=== PATIENT | male | born 1950 | race Caucasian/White ===

== ENCOUNTER → 2021-08-08 | Day surgery (SDC) | payer MEDICARE ==
[~2021-08-08] VITALS: Ht 176.5 cm; Wt 113.7 kg
[~2021-08-08] MED LIST: ASPIRIN EC81 MG PO; CARDIZEM CD240 MG PO; CARVEDILOL ER80 MG PO; CELEXA20 MG PO; ELIQUIS5 MG PO; ESOMEPRAZOLE MA40 MG PO; FENOFIBRATE160 MG PO; FLECAINIDE ACET50 MG PO; IRBESARTAN150 MG PO; LASIX40 MG PO; NAMZARIC 21 MG1 EACH PO
== END | disposition home or self-care (01) ==
LOC: FAS 07:55
DX: Z12.11 Encounter for screening for malignant neoplasm of colon (principal); D12.3 Benign neoplasm of transverse colon; K57.30 Diverticulosis of large intestine without perforation or abscess without bleeding; I12.9 Hypertensive chronic kidney disease with stage 1 through stage 4 chronic kidney disease, or unspecified chronic kidney disease; N18.9 Chronic kidney disease, unspecified; I48.91 Unspecified atrial fibrillation; E78.5 Hyperlipidemia, unspecified; K21.9 Gastro-esophageal reflux disease without esophagitis; G47.33 Obstructive sleep apnea (adult) (pediatric); Z85.038 Personal history of other malignant neoplasm of large intestine; Z87.891 Personal history of nicotine dependence; Z86.010 Personal history of colon polyps; Z88.0 Allergy status to penicillin; Z79.82 Long term (current) use of aspirin; Z79.01 Long term (current) use of anticoagulants; Z79.899 Other long term (current) drug therapy
CPT/HCPCS: J2250; J2704; J7120